=== PATIENT | female | born 1990 | race Two or more races ===

== ENCOUNTER 2018-03-18 13:48 | Emergency (ER) | payer SELFPAY ==
[~2018-03-18] VITALS: Ht 154.9 cm; Wt 69.0 kg
[~2018-03-18 13:48] MED LIST: HYDR-842 PO; PRED20TA PO
[2018-03-18 13:59] VITALS: BP 136/88; PULSE 106; RESP 20; Ht 154.9 cm; Wt 69.0 kg
[2018-03-18] MEDS ORDERED: PREN1COM10 PO (20:08)
[2018-03-18] MEDS ORDERED: GUAI-637 PO (20:09)
--- NOTE | 2018-03-19 02:47 | ERD ---
ER Documentation Chief Complaint Chief Complaint c/o lower abdominl pain x1 week with nausea, noted with dysuria HPI 27-year-old female presents for abdominal pain times 1 week. She took a urine test at home and it was positive. Last menstrual period was noted to be 01/23/2018. She states that the pain is in the lower part of the abdomen. She rates pain as 5 out 10. There is associated nausea and vomiting. Denies any dysuria. Denies any vaginal bleeding. She denies chest pain or shortness of breath. She also states she has a cough for a week and wants to know if cough medication is ok. ROS All systems reviewed and are negative except as per history of present illness. Medications Home Meds Active Scripts Guaifenesin* (Robitussin*) 100 Mg/5 Ml Syrup, 100 MG PO Q4H PRN for COUGH for 7 Days, #1 BOTTLE Prov:HIGHHAYDEE 03/18/18 Cmb#95/Iron/Fa/Dha ( + DHA COMBO PACK) 1 Each Combo..pkg, 1 EACH PO DAILY for , #30 TAB Prov:HAYDEE HIGH DO 03/18/18 Prednisone* (Prednisone*) 20 Mg Tab, 20 MG PO DAILY for 4 Days, TAB Prov:JERRY PAYAN MD 12/09/15 Hydroxyzine Hcl* (Atarax*) 25 Mg Tab, 25 MG PO Q6H PRN for ITCHING, #30 TAB Prov:JERRY PAYAN MD 12/09/15 Allergies Allergies: Coded Allergies: No Known Allergy (Unverified , 03/18/18) PMhx/Soc Medical and Surgical Hx: pt denies Medical Hx, pt denies Surgical Hx Hx Alcohol Use: No Hx Substance Use: No Hx Tobacco Use: No Smoking Status: Never smoker Physical Exam Vitals Vital Signs Date Temp Pulse Resp B/P (MAP) Pulse Ox O2 O2 Flow FiO2 Time Delivery Rate 03/18/18 98.4 106 20 136/88 100 13:59 (104) Physical Exam Const: No acute distress Mouth: No tonsillar exudates, no tonsillar swelling. Resp: Clear to auscultation bilaterally Cardio: Regular rate and rhythm, no murmurs Abd: Soft, non distended. Normal bowel sounds, mild tenderness to palpation in the pelvic region, no Meyer sign, no McBurney's point tenderness, no rebound or guarding noted. Skin: No petechiae or rashes Back: No midline or flank tenderness Ext: No cyanosis, or edema Neur: Awake and alert Psych: Normal Mood and Affect Result Diagram: 03/18/18 1746 03/18/18 1746 Results 24 hrs Laboratory Tests Test 03/18/18 17:44 03/18/18 17:46 POC Beta HCG, Qualitative POSITIVE White Blood Count 13.6 10^3/ul Red Blood Count 4.56 10^6/ul Hemoglobin 12.6 g/dl Hematocrit 38.0 % Mean Corpuscular Volume 83.3 fl Mean Corpuscular Hemoglobin 27.6 pg Mean Corpuscular Hemoglobin Concent 33.2 g/dl Red Cell Distribution Width 13.6 % Platelet Count 271 10^3/UL Mean Platelet Volume 10.7 fl Immature Granulocytes % 0.400 % Neutrophils % 54.0 % Lymphocytes % 27.0 % Monocytes % 9.6 % Eosinophils % 8.7 % Basophils % 0.3 % Nucleated Red Blood Cells % 0.0 /100WBC Immature Granulocytes # 0.060 10^3/ul Neutrophils # 7.3 10^3/ul Lymphocytes # 3.7 10^3/ul Monocytes # 1.3 10^3/ul Eosinophils # 1.2 10^3/ul Basophils # 0.0 10^3/ul Nucleated Red Blood Cells # 0.0 10^3/ul Urine Color YELLOW Urine Clarity CLEAR Urine pH 8.0 Urine Specific [place] 1.016 Urine Ketones NEGATIVE mg/dL Urine Nitrite NEGATIVE mg/dL Urine Bilirubin NEGATIVE mg/dL Urine Urobilinogen NEGATIVE mg/dL Urine Leukocyte Esterase NEGATIVE Layo/ul Urine Microscopic RBC 8 /HPF Urine Microscopic WBC 1 /HPF Urine Squamous Epithelial Cells FEW /HPF Urine Hemoglobin 1+ mg/dL Urine Glucose 1+ mg/dL Urine Total Protein NEGATIVE mg/dl Sodium Level 137 mmol/L Potassium Level 3.8 mmol/L Chloride Level 101 mmol/L Carbon Dioxide Level 29 mmol/L Anion Gap 7 Blood Urea Nitrogen 4 mg/dl Creatinine 0.39 mg/dl Est Glomerular Filtrat Rate mL/min > 60 mL/min Glucose Level 126 mg/dl Calcium Level 9.4 mg/dl Total Bilirubin 0.1 mg/dl Direct Bilirubin 0.00 mg/dl Indirect Bilirubin 0.1 mg/dl Aspartate Amino Transf (AST/SGOT) 82 IU/L Alanine Aminotransferase (ALT/SGPT) 123 IU/L Alkaline Phosphatase 85 IU/L Total Protein 7.3 g/dl Albumin 4.2 g/dl Globulin 3.10 g/dl Albumin/Globulin Ratio 1.35 Lipase 69 U/L Beta HCG, Quantitative 2465.9 mIU/ml Procedures/MDM Medical Decision Making: Differential diagnosis includes but not limited to acute gastroenteritis, appendicitis, cholecystitis, pancreatitis, ectopic . Patient appeared well on physical exam. Nontoxic appearing. Labs: CBC showed no anemia, mildly elevated WBC 13.6 CMP showed no electrolyte abnormalities, there was normal kidney function, liver function with AST 82, ALT 123 Lipase was normal Urine was positive UA was negative for infection Beta hCG 2465 Imaging: Pelvic ultrasound showed Probable early intrauterine gestational sac. This represents probable intrauterine of unknown viability. Follow-up is recommended as clinically indicated. Patient also stated that she had a cough. There is no tonsillar exudate noted on physical examination. There is no tonsillar swelling. Patient likely has a URI. Patient mildly elevated WBC likely due to stress reaction. There is no sign of infection. Mildly elevated AST and ALT unlikely the cause of the patient's current symptoms. Patient advised to repeat labs with her primary care jorge ludwig. Prescription(s): Patient given prescription for Robitussin, vitamins. Patient advised to follow up with PCP in 1-2 days. Patient also advised to follow with [employer] TECHNICIAN. Information for follow-up given to patient. Patient advised to return to ED for new or worsening symptoms. Patient stable on discharge from the ED. Disclaimer: Inadvertent spelling and grammatical errors are likely due to EHR/dictation software use and do not reflect on the overall quality of patient care. Also, please note that the electronic time recorded on this note does not necessarily reflect the actual time of the patient encounter. Departure Diagnosis: Primary Impression: Additional Impressions: Cough Pelvic pain Condition: Fair Patient Instructions: Ultrasound, Abdominal Pain, Early Referrals: COMM[facility]ITY CLINICS YOU HAVE RECEIVED A MEDICAL SCREENING EXAM AND THE RESULTS INDICATE THAT YOU DO NOT HAVE A CONDITION THAT REQUIRES URGENT TREATMENT IN THE EMERGENCY DEPARTMENT. FURTHER EVALUATION AND TREATMENT OF YOUR CONDITION CAN WAIT UNTIL YOU ARE SEEN IN YOUR DOCTORS OFFICE WITHIN THE NEXT 1-2 DAYS. IT IS YOUR RESPONSIBILITY TO MAKE AN APPOINTMENT FOR FOLOW-UP CARE. IF YOU HAVE A PRIMARY DOCTOR --you should call your primary doctor and schedule an appointment IF YOU DO NOT HAVE A PRIMARY DOCTOR YOU CAN CALL OUR PHYSICIAN REFERRAL HOTLINE AT IF YOU CAN NOT AFFORD TO SEE A PHYSICIAN YOU CAN CHOSE FROM THE FOLLOWING [facility] [phone] [facility]. [facility] [address] [facility]. [place] [address] [facility]. [facility] [phone] [facility]. [facility] [address] [facility]. [facility] [address] [employer] TECHNICIAN [place] [address] [facility] [address] [place] [address] OFFICE FAX , [facility] [address] [place] [address] [facility] [address] [place] [address] DAYANA SALAZARIZZY [address] [facility], [address], [facility] [address] [address] [address] [place] [address] [facility] [address] [place], [place] [id number] [facility] [id number] - SELINA SANDRA [address] [facility] [address] [address], [facility] [phone] [address] [address] [place] [address] Additional Instructions: Call your primary care doctor TOMORROW for an appointment during the next 1-2 days.See the doctor sooner or return here if your condition worsens before your appointment time. Follow up with Epic Trainer HAYDEE HIGH DO Mar 19, 2018 02:47
== END 2018-03-18 20:19 | disposition home or self-care (01) ==
LOC: FTE 13:48
DX: O26.891 Other specified pregnancy related conditions, first trimester (principal); R10.2 Pelvic and perineal pain; O99.89 Other specified diseases and conditions complicating pregnancy, childbirth and the puerperium; R05 Cough; Z3A.00 Weeks of gestation of pregnancy not specified
CPT/HCPCS: 36415; 76801; 76817; 80053; 81001; 81025; 83690; 84702; 85025

== ENCOUNTER 2018-11-17 13:40 | Inpatient (IN) | payer MEDICAID ==
[~2018-11-17] VITALS: Ht 152.4 cm; Wt 72.7 kg
[~2018-11-17 13:40] MED LIST changes: +GUAI-637 PO; +IBUP-1542 PO; +PREN1COM10 PO
[2018-11-17 15:13] VITALS: Ht 152.4 cm; Wt 72.7 kg
[2018-11-17 15:15] VITALS: BP_SYST 112; PULSE 87
[2018-11-17 15:17] VITALS: RESP 16
[2018-11-17] MEDS ORDERED: LIDOCAINE 1% (MPF) 30 ML INJ INJ PRN (20:00)
[2018-11-17] MEDS ORDERED: MISOPROSTOL 200 MCG TAB PR PRN (20:00)
[2018-11-17] MEDS ORDERED: METHYLERGONOVINE 0.2 MG INJ IM PRN (20:00)
[2018-11-17] MEDS ORDERED: BUTORPHANOL 2 MG INJ IV PRN (20:00)
[2018-11-17] MEDS ORDERED: OXYTOCIN 30 UNITS/LR 500 ML IV PRN (20:00)
[2018-11-17] MEDS ORDERED: IBUPROFEN 600 MG TAB PO PRN (20:00)
[2018-11-17] MEDS ORDERED: OXYTOCIN 30 UNITS/LR 500 ML IV SCH ×2 (20:00)
[2018-11-17] MEDS ORDERED: CARBOPROST 250 MCG INJ IM PRN (20:00)
[2018-11-17] MEDS ORDERED: AMPICILLIN 2 GM/NS (PMX) 100 ML IV ONE (21:00)
[2018-11-17] MEDS: LACTATED RINGER'S 1,000 ML IV SCH (21:30)
[2018-11-17] MEDS: MISOPROSTOL 50 MCG CAPSULE PO PRN (21:31)
[2018-11-18] MEDS: MISOPROSTOL 50 MCG CAPSULE PO PRN ×5 (01:26→18:08)
[2018-11-18] MEDS: AMPICILLIN 1 GM/NS (PMX) 50 ML IV SCH ×6 (01:27→20:41)
[2018-11-18] MEDS: LACTATED RINGER'S 1,000 ML IV SCH ×3 (05:01→20:41)
[2018-11-19] MEDS: AMPICILLIN 1 GM/NS (PMX) 50 ML IV SCH ×6 (01:04→22:04)
[2018-11-19] MEDS: LACTATED RINGER'S 1,000 ML IV SCH ×3 (04:55→22:07)
[2018-11-20] MEDS ORDERED: OXYTOCIN 30 UNITS/LR 500 ML IV SCH
[2018-11-20] MEDS: AMPICILLIN 1 GM/NS (PMX) 50 ML IV SCH ×6 (02:58→21:58)
[2018-11-20] MEDS: LACTATED RINGER'S 1,000 ML IV SCH ×2 (06:56→15:58)
[2018-11-20] MEDS ORDERED: ONDANSETRON 4 MG INJ IV PRN (09:00)
[2018-11-20] MEDS ORDERED: NALOXONE (0.4 MG/ML) INJ IV PRN (12:00)
[2018-11-20] MEDS: FENTAnyl 2MCG/ML-ROPIV 0.2% 100 ML BAG EPI SCH ×2 (13:14→19:27)
[2018-11-21] MEDS: LACTATED RINGER'S 1,000 ML IV SCH ×4 (00:15→13:55)
[2018-11-21] MEDS: AMPICILLIN 1 GM/NS (PMX) 50 ML IV SCH ×6 (00:26→18:23)
[2018-11-21] MEDS: FENTAnyl 2MCG/ML-ROPIV 0.2% 100 ML BAG EPI SCH ×3 (03:56→17:42)
[2018-11-21] MEDS: LACTATED RINGER'S 1,000 ML IV* SCH (08:10)
[2018-11-21] MEDS ORDERED: MINERAL OIL LIGHT 10 ML VIAL TOP STA (19:17)
[2018-11-21] MEDS ORDERED: ACETAMINOPHEN 500 MG TAB PO STA (20:16)
[2018-11-21] MEDS ORDERED: KETOROLAC 30 MG INJ IV STA (20:16)
[2018-11-21] MEDS ORDERED: MISOPROSTOL 200 MCG TAB PR PRN (22:00)
[2018-11-21] MEDS ORDERED: METHYLERGONOVINE 0.2 MG INJ IM PRN (22:00)
[2018-11-21] MEDS ORDERED: ZOLPIDEM 5 MG TAB PO PRN (22:00)
[2018-11-21] MEDS ORDERED: LANOLIN HPA 1 PKT TOP PRN (22:00)
[2018-11-21] MEDS ORDERED: DIBUCAINE 1% 30 GM OINT TOP PRN (22:00)
[2018-11-21] MEDS ORDERED: CARBOPROST 250 MCG INJ IM PRN (22:00)
[2018-11-21] MEDS ORDERED: HYDROCODONE/APAP (5/325) TAB PO PRN (22:00)
[2018-11-21] MEDS ORDERED: OXYTOCIN 30 UNITS/LR 500 ML IV PRN (22:00)
[2018-11-21 22:05] VITALS: BP 138/66; PULSE 80; RESP 18
[2018-11-21] MEDS: WITCH HAZEL/GLYCERIN PAD PR PRN (22:51)
[2018-11-21] MEDS: BENZOCAINE 20% 56 ML SPRAY TOP PRN (22:52)
[2018-11-21] MEDS: CEPHALEXIN 500 MG CAP PO SCH (23:39)
[2018-11-21] MEDS: IBUPROFEN 600 MG TAB PO SCH (23:39)
[2018-11-22] MEDS: HYDROCODONE/APAP (5/325) TAB PO PRN (02:21)
[2018-11-22 04:24] VITALS: BP 110/61; PULSE 71; RESP 18
[2018-11-22] MEDS: IBUPROFEN 600 MG TAB PO SCH ×3 (05:42→17:54)
[2018-11-22] MEDS: CEPHALEXIN 500 MG CAP PO SCH ×3 (05:42→17:54)
[2018-11-22 08:00] VITALS: BP 130/64; PULSE 65; RESP 16
[2018-11-22] MEDS: SENNA/DOCUSATE NA (8.6MG/50MG) TAB PO SCH ×2 (09:29→22:00)
[2018-11-22] MEDS: MAGNESIUM HYDROXIDE 30ML CUP PO SCH ×2 (09:29→21:00)
[2018-11-22] MEDS: LACTATED RINGER'S 1,000 ML IV* SCH ×3 (13:34→21:34)
[2018-11-22 16:00] VITALS: BP 118/68; PULSE 64; RESP 16
[2018-11-22 20:00] VITALS: BP 116/80; PULSE 68; RESP 18
[2018-11-23] MEDS: CEPHALEXIN 500 MG CAP PO SCH ×3 (00:03→11:22)
[2018-11-23] MEDS: IBUPROFEN 600 MG TAB PO SCH ×4 (00:03→11:23)
[2018-11-23] MEDS: HYDROCODONE/APAP (5/325) TAB PO PRN (02:00)
[2018-11-23 04:00] VITALS: BP 116/79; PULSE 63; RESP 18
[2018-11-23] MEDS: LACTATED RINGER'S 1,000 ML IV* SCH (05:34)
[2018-11-23 09:00] VITALS: BP 117/68; PULSE 65; RESP 16
[2018-11-23] MEDS ORDERED: DIPHTH/TET/ACEL PERTUSS (ADULT) 0.5 ML VIAL IM* ONE (09:00)
[2018-11-23] MEDS ORDERED: MEASLES,MUMPS,RUBELLA VACCINE INJ SC* ONE (09:00)
[2018-11-23] MEDS ORDERED: VARICELLA VACCINE LIVE/PF 1,350 UNIT/0.5 ML ML SC* ONE (09:00)
[2018-11-23] MEDS: MAGNESIUM HYDROXIDE 30ML CUP PO SCH (09:00)
[2018-11-23] MEDS: SENNA/DOCUSATE NA (8.6MG/50MG) TAB PO SCH (10:23)
[2018-11-23] MEDS: WITCH HAZEL/GLYCERIN PAD PR PRN (10:52)
[2018-11-23] MEDS: BENZOCAINE 20% 56 ML SPRAY TOP PRN (10:52)
== END 2018-11-23 15:30 | disposition home or self-care (01) | DRG 807 ==
LOC: OBT 13:40 → L-D 13:40 → OBT 16:00 → L-D 11-19 18:14 → MS1 11-21 22:13 → PP1 11-23 14:35
PROVIDERS: ADMIT Obstetrics & Gynecology; ATTEND Obstetrics & Gynecology
PROC: 10D07Z6 Extraction of Products of Conception, Vacuum, Via Natural or Artificial Opening (ICD-10-PCS; principal; 2018-11-21)
DX: O69.81X0 Labor and delivery complicated by cord around neck, without compression, not applicable or unspecified (principal); Z37.0 Single live birth; O76 Abnormality in fetal heart rate and rhythm complicating labor and delivery; O36.5930 Maternal care for other known or suspected poor fetal growth, third trimester, not applicable or unspecified; Z3A.39 39 weeks gestation of pregnancy
CPT/HCPCS: 62322; 76815; 76818; 85025; 85610; 85730; 86592; 86850; 86900; 86901; 87340; 88307; 90715; 90716; 99464; G0463; J0290; J1885; J2590; J3010; J7120